=== PATIENT | male | born 2000 | race Caucasian/White ===

== ENCOUNTER → 2023-08-28 | Outpatient (CLI) | payer OTHER ==
[~2023-08-28] MED LIST: ALBU90OI INH; AMOCLA250S PO; IBUP100S PO; IBUP600 PO; Norco 5-325 Ta1 EACH PO; RXAMOCLASU PO; TYLENOL
== END | disposition home or self-care (01) ==
LOC: LAB 18:37 → LAB SHORT 18:37
DX: J02.9 Acute pharyngitis, unspecified (principal)
CPT/HCPCS: 87081